=== PATIENT | female | born 1980 | race Caucasian/White ===

== ENCOUNTER 2021-08-01 16:19 | Outpatient (CLI) | payer OTHER, SELFPAY ==
--- NOTE | ~2021-08-01 | XR_ITS ---
EXAMINATION: XR abdomen/kub 1V EXAM DATE: 08/01/2021 16:47 INDICATION: Hx Of Kidney Stones/Laperscopic Surg, Bladder Pain X 1 Week TECHNIQUE: Frontal projection(s) of the abdomen for interpretation. Comparison is made to prior exami nation from 11/15/2017. FINDINGS: Can't identify the tiny calcifications reported on CT. There is IUD projecting over the ce ntral aspect of the pelvis. Nonobstructive bowel gas pattern. Mild bilateral hip osteoarthritis. IMPRESSION: 1. Unremarkable KUB exam. Reviewed, dictated and finalized at location A. IMPRESSION: 1. Unremarkable KUB exam.
--- NOTE | ~2021-08-01 | CT_ITS ---
EXAMINATION: CT abdomen pelvis wo con EXAM DATE: 08/01/2021 17:12 INDICATION: HX kidney stones, pelvic pain/pressure. TECHNIQUE: Spiral CT of the abdomen and pelvis was performed without contrast. Axial, coronal and sag ittal images were reviewed. The dose-length product (DLP) for this examination was 1331.80 mGy-cm. The exposure was tailored according to patient size (auto mA exposure control), and iterative reconst ruction (ASIR) was used as additional dose reduction technique. Comparison is made to prior examinati on from 11-22-17. FINDINGS: There is a punctate stone which is probably in the dependent portion the bladder. No hydrou reteronephrosis. There is right calyceal diverticulum with small calcifications or cyst with calcific ations along the wall. There is an IUD. The liver, spleen, adrenal glands and pancreas are unremark able. Gallbladder is unremarkable. No biliary obstruction. There is no retroperitoneal or pelvic l ymphadenopathy. Small umbilical fat-containing hernia. The appendix is normal. The stomach and small bowel are unremarkable. There is expected amount of c olonic stool. No free intraperitoneal gas. The heart is normal in size. There are no pericardial or pleural effusions. The lung bases are unremarkable. There are no osteoblastic or osteolytic les ions identified. IMPRESSION: 1. Punctate bladder calcification could be recently passed right ureteral stone. 2. Right renal cyst or calyceal diverticulum with small calcifications. Reviewed, dictated and finalized at location A. IMPRESSION: 1. Punctate bladder calcification could be recently passed right ureteral ston e. 2. Right renal cyst or calyceal diverticulum with small calcifications.
== END 2021-08-01 16:20 | disposition home or self-care (01) ==
PROVIDERS: PCP Family Medicine; Visit Provider Nurse Practitioner Adult Health
DX: K42.9 Umbilical hernia without obstruction or gangrene (principal); N28.1 Cyst of kidney, acquired; Z97.5 Presence of (intrauterine) contraceptive device
CPT/HCPCS: 74018; 74176

== ENCOUNTER → 2022-10-04 14:47 | Outpatient (CLI) | payer OTHER, SELFPAY ==
--- NOTE | ~2022-10-04 | US_ITS ---
EXAMINATION: US pelvic complete w TV DATE: 10/04/2022 15:16 INDICATION: Pelvic and perineal pain. Comparison:CT dated 08/01/2021 and ultrasound dated 08/07/2017 TECHNIQUE: Multiple transabdominal and endovaginal sonographic images of the pelvis performed. FINDINGS: The uterus measures 6 x 3.7 x 4.9 cm. The endometrial complex measures 5 mm. There is a sli ghtly hypoechoic mass of the anterior margin of the cervix measuring 1.5 x 1.3 x 2.1 cm The right ovary is not visualized. The left ovary is surgically absent. There is no free fluid in the pelvis. There are no abnormal masses seen on either side. IMPRESSION: 1. Hypoechoic mass at the anterior aspect of the cervix measuring 2.1 cm maximum dimension. Recommend further clinical evaluation. 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 Hypoechoic mass at the anterior aspect of the cervix measuring 2.1 cm maximu m dimension. Recommend further clinical evaluation.
== END ==
PROVIDERS: PCP Nurse Practitioner; Visit Provider Nurse Practitioner
DX: R10.2 Pelvic and perineal pain (principal)
CPT/HCPCS: 76830; 76856

== ENCOUNTER 2024-02-13 07:55 | Outpatient (CLI) | payer OTHER, SELFPAY | END 2024-02-13 07:56 | disposition home or self-care (01) | LOC: ANHAUDASC 07:57 | PROVIDERS: PCP Otolaryngology; Visit Provider Otolaryngology | DX: H65.91 Unspecified nonsuppurative otitis media, right ear (principal); H73.811 Atrophic flaccid tympanic membrane, right ear; H90.11 Conductive hearing loss, unilateral, right ear, with unrestricted hearing on the contralateral side; S09.21XA Traumatic rupture of right ear drum, initial encounter; X58.XXXA Exposure to other specified factors, initial encounter; H90.41 Sensorineural hearing loss, unilateral, right ear, with unrestricted hearing on the contralateral side | CPT/HCPCS: 92557; 92567 ==

== ENCOUNTER 2024-03-05 13:24 | Outpatient (CLI) | payer OTHER, SELFPAY ==
--- NOTE | ~2024-03-05 | CT_ITS ---
EXAMINATION: CT IAC/mastoids BI wo con DATE: 03/05/2024 13:53 INDICATION: Conductive hearing loss in right ear. TECHNIQUE: Computed tomography (CT) of the temporal bones was performed without intravenous contrast. Automated exposure control and iterative reconstruction technique were employed. The dose-length pro duct was 248.73 mGy-cm. COMPARISON: None FINDINGS: RIGHT TEMPORAL BONE: The internal auditory canal, cochlea, vestibule, semicircular canals, vestibular aqueduct, carotid ca nal, jugular bulb, facial nerve course, ossicles, Prussak space, and scutum are normal. There is mate rial in the tympanic cavity and mastoid air cells that is retracted from the bone. The tympanic membr ane is unremarkable. The external auditory canal is normal. LEFT TEMPORAL BONE: The internal auditory canal, cochlea, vestibule, semicircular canals, vestibular aqueduct, carotid ca nal, jugular bulb, facial nerve course, ossicles, tympanic membrane, mastoid air cells, and external auditory canal are normal. IMPRESSION: 1. Material in the right tympanic cavity and right mastoid air cells that is retracted from the bone. This morphology is suggestive of hematoma. Reviewed, dictated and finalized at location A. IMPRESSION: 1. Material in the right tympanic cavity and right mastoid air cells that is re tracted from the bone. This morphology is suggestive of hematoma.
== END 2024-03-05 13:25 ==
LOC: MICIMG 13:25
PROVIDERS: Visit Provider Otolaryngology
DX: H83.8X9 Other specified diseases of inner ear, unspecified ear (principal); H73.811 Atrophic flaccid tympanic membrane, right ear; H90.11 Conductive hearing loss, unilateral, right ear, with unrestricted hearing on the contralateral side; S09.21XA Traumatic rupture of right ear drum, initial encounter
CPT/HCPCS: 70480

== ENCOUNTER 2024-05-08 07:40 | Emergency (ER) | payer OTHER, SELFPAY ==
--- NOTE | ~2024-05-08 | CT_ITS ---
Clinical Indication: Epigastric pain, chest pain CT Scan of the Chest, Abdomen, and Pelvis with Contrast: Technique: Contiguous sections were acquired throughout the chest, abdomen, and pelvis after intraven ous administration of 100 cc of Omnipaque 350. Dose reduction technique was used on this scan by dia lazaroing automated exposure control and iterative reconstruction technique. The dose-length product (DL P) was 1605.43 mGy-cm. Findings: There is no evidence of any significant mediastinal, hilar or axillary lymphadenopathy. The mediastin al soft tissues appear normal. There is no evidence of pleural or pericardial effusion. The lungs are clear. No pulmonary nodules or infiltrates are noted. The liver, spleen, pancreas, gallbladder, adrenals and kidneys are within normal limits. No evidence of aortic aneurysm. No lymphadenopathy. No bowel obstruction or bowel wall thickening. There is evidence of prior bariatric surgery. Urinary bladder is unremarkable. No pelvic mass seen. IUD in place. No ascites. Impression: No acute abnormality. Status post prior bariatric surgery. Reviewed, dictated and finalized at [facility]. Impression: No acute abnormality. Status post prior bariatric surgery.
--- NOTE | ~2024-05-08 | XR_ITS ---
Clinical Indication: Chest pain AP and lateral views of the chest: Comparison: 06/19/2006 Findings: The lungs are clear, without evidence of focal consolidation or pleural effusion. Cardiome diastinal silhouette is within normal limits. Bones and soft tissues are unremarkable. Impression: Normal chest. Reviewed, dictated and finalized at location . Impression: Normal chest.
--- NOTE | 2024-05-08 07:42 | ECG_ITS ---
Test Date: 2024-05-08 07:47:41 Measurements Intervals [place] Rate: 67 P: 7 [place]: 167 QRS: 30 QRSD: 102 T: 30 QT: 425 QTc: 449 Interpretive Statements SINUS RHYTHM NORMAL ECG No previous ECG available for comparison Electronically Signed On 05-08-2024 12:41:38 CDT by Conner Terry D.O.
[2024-05-08 07:51] VITALS: BP 140/93; PULSE 74; RESP 14; O2SAT 100
--- NOTE | 2024-05-08 08:13 | ED.CHESTPAIN ---
HPI - Chest Pain General Chief Complaint: Chest Pain Stated Complaint: chest pain Time Seen by Provider: 05/08/24 07:59 Source: patient Mode of arrival: ambulatory Limitations: no limitations History of Present Illness HPI narrative: [age] years WHITE FEMALE DROVE HERSELF TO THE EMERGENCY ROOM BECAUSE OF EPIGASTRIC PAIN STARTED 4 HOURS PRIOR TO ARRIVAL TO THE EMERGENCY ROOM, LIKE A BUBBLE, PRESSURE TYPE, WORSE WITH STANDING AND WALKING, RADIATING TO RETROSTERNAL. PATIENT STARTED ON ZEPBOUND 2 WEEKS AGO, RECEIVED THE 2ND DOSE LAST NIGHT. SHE DENIES ANY FEVER, CHILLS, NAUSEA, VOMITING. HISTORY OF GASTRIC SLEEVE, DOES NOT SMOKE AND DRINK OCCASIONALLY, FATHER HAD HEART ATTACK AT AGE 40. Related Data Home Medications Medication Instructions Recorded Confirmed cholecalciferol (vitamin D3) 125 125 mcg PO DAILY 01/21/24 01/21/24 mcg (5,000 unit) tablet indapamide 2.5 mg tablet 2.5 mg PO DAILY 01/21/24 01/21/24 mecobalamin (vitamin B12) 1,000 1,000 mcg PO DAILY 01/21/24 01/21/24 mcg chewable tablet multivitamin 1 tablet PO DAILY 01/21/24 01/21/24 tirzepatide (weight loss) 5 mg/0.5 5 mg subcut WEEKLY 05/05/24 mL subcutaneous pen injector (Zepbound) Allergies Allergy/AdvReac Type Severity Reaction Status Date / Time Sulfa (Sulfonamide Allergy Unknown Unknown Verified 05/05/24 08:02 Antibiotics) amoxicillin AdvReac Intermediate rash Verified 05/05/24 08:02 tape AdvReac Intermediate rash Uncoded 05/05/24 08:02 Review of Systems Review of Systems: All systems reviewed & are unremarkable except as noted in HPI and below PMFSH Surgical History Surgical History H/O gastric sleeve Family History Family History Father Heart disease Mother Alcoholism Asthma Hypertension Depression Sibling Depression Grandparent Asthma Thyroid disorder Social History Social History Social History: Caffeine-coffee Smoking status: Never smoker Alcohol intake: current Alcohol use details: occasionally Substance use: never Substance use type: does not use Do You Feel Safe in your Home?: Yes Lack of Transportation: No Lack of Food: Never True Current Housing: I Have Housing Concerned About Future Housing: No Difficulty Paying Gas/Electric Bills: No Difficulty Paying for Meds: No Currently Unemployed: No Education: Master's Degree or Higher Difficulty w/ Childcare or Family Care: No Exam Narrative: GENERAL APPEARANCE: WELL-DEVELOPED, WELL-NOURISHED SKIN: NORMAL COLOR HEAD: NORMOCEPHALIC, NONTRAUMATIC EYES: CLEAR CONJUNCTIVA ENT: OROPHARYNX NORMAL, EARS NORMAL, NOSE NORMAL NECK: SUPPLE, NONTENDER CHEST AND RESPIRATORY: AIRWAY PATENT, NO RESPIRATORY DISTRESS, NO ACCESSORY MUSCLE USE HEART: REGULAR RATE/RHYTHM ABDOMEN: SOFT, NONTENDER, NO ORGANOMEGALY, QUIET BOWEL SOUNDS VASCULAR: NORMAL PERIPHERAL PULSES, NORMAL CAPILLARY REFILL. MUSCULOSKELETAL: NORMAL RANGE OF MOTION, NONTENDER BACK NEUROLOGIC: ALERT AND ORIENTED ?3, WELDER PRODUCTION LINE GAS IS NORMAL TESTED, NO GROSS MOTOR DEFICIT Course Vital Signs Vital signs: Vital Signs Pulse Rate 74 05/08/24 07:51 Respiratory Rate 14 05/08/24 07:51 Blood Pressure 140/93 H 05/08/24 07:51 Pulse Oximetry 100 05/08/24 07:51 Oxygen Delivery Room Air 05/08/24 07:51 Pulse Rate 74 05/08/24 10:30 Respiratory Rate 16 05/08/24 10:30 Blood Pressure 127/78 05/08/24 10:30 Pulse Oximetry 100 05/08/24 10:30 Oxygen Delivery Room Air 05/08/24 09:00 MDM - Chest Pain MDM Narrati
[2024-05-08 08:34] LABS: Basophils Absolute Auto 0.1 K/mm3 (0.0-0.1); Basophils Percent Auto 0.9 % (0.2-1.2); Eosinophils Absolute Auto 0.1 K/mm3 (0-0.3); Eosinophils Percent Auto 1.8 % (0-4.4); Hematocrit 41.3 % (37.0-47.0); Hemoglobin 13.8 g/dL (12.0-15.0); Immature Granulocyte Absolute 0.02 K/mm3 (0.00-0.031); Immature Granulocyte Percent A 0.3 % (0-0.5); Lymphocytes Absolute Auto 1.77 K/mm3 (0.9-3.2); Lymphocytes Percent Auto 25.8 % (18.3-44.2); Mean Corpuscular HGB Conc 33.4 g/dl (32-36); Mean Corpuscular Hemoglobin 29.9 pg (26-34); Mean Corpuscular Volume 89.6 fl (80-100); Mean Platelet Volume 10.6 fl (7.4-10.4); Monocytes Absolute Auto 0.4 K/mm3 (0.1-0.6); Monocytes Percent Auto 5.4 % (2.6-8.5); Neutrophils Absolute Auto 4.5 K/mm3 (1.3-6.7); Neutrophils Percent Auto 65.8 % (45.5-73.1); Platelet Count Result 195 k/mm3 (150-375); Red Blood Count 4.61 M/mm3 (4.2-5.4); Red Cell Distribution Width 11.8 % (11.5-14.5); White Blood Count 6.9 K/mm3 (4.5-10.0)
[2024-05-08 08:43] LABS: Prothrombin Time 13.4 Seconds (11.1-14.7)
[2024-05-08 08:45] LABS: Alanine Aminotransferase 15 U/L (6-35); Albumin Level 4.8 g/dL (3.5-5.1); Alkaline Phosphatase 49 U/L (38-126); Anion Gap 9 mmol/L (4-12); Aspartate Amino Transferase 20 U/L (14-36); Bilirubin,Total 1.2 mg/dL (0.2-1.3); Blood Urea Nitrogen 19 mg/dL (7-17); Calcium 9.3 mg/dL (8.4-10.2); Carbon Dioxide 32 mmol/L (22-30); Chloride 99 mmol/L (98-107); Estimated CRCL calculation 98 ml/min; Estimated Glomerular Filt Rate > 60; Glucose 92 mg/dL (65-110); Lipase 123 U/L (23-300); Potassium 3.3 mmol/L (3.4-5.0); Sodium 140 mmol/L (137-145)
[2024-05-08 08:56] LABS: Troponin I < 0.012 ng/mL (0.000-0.034)
[2024-05-08 09:50] LABS: D Dimer < 0.27 ug/mL (<0.48)
[2024-05-08 10:30] VITALS: BP 127/78; PULSE 74; RESP 16; O2SAT 100
--- NOTE | 2024-05-08 11:16 | ECG_ITS ---
Test Date: 2024-05-08 11:21:02 Measurements Intervals [place] Rate: 68 P: 19 [place]: 182 QRS: 29 QRSD: 105 T: 27 QT: 444 QTc: 474 Interpretive Statements SINUS RHYTHM LOW QRS VOLTAGE IN PRECORDIAL LEADS BORDERLINE ECG Compared to ECG 05/08/2024 07:47:41 NO SIGNIFICANT CHANGE Electronically Signed On 05-10-2024 11:14:43 CDT by Conner Terry D.O.
[2024-05-08 11:44] LABS: Troponin I < 0.012 ng/mL (0.000-0.034)
== END 2024-05-08 12:35 | disposition home or self-care (01) ==
PROVIDERS: Emergency Provider Emergency Medicine
DX: R10.13 Epigastric pain (principal); R07.9 Chest pain, unspecified
CPT/HCPCS: 36415; 71046; 71260; 74177; 80053; 83690; 84484; 85025; 85380; 85610; 85730; 93005; 99284; Q9967